=== PATIENT | female | born 1960 | race African-American/Black ===

== ENCOUNTER → 2016-08-02 | Outpatient (CLI) | payer OTHER | LOC: OD 09:23 | DX: G50.1 Atypical facial pain (principal); Z91.81 History of falling | CPT/HCPCS: 70150 ==

== ENCOUNTER 2016-08-06 12:25 | Observation (INO) | payer MEDICAID, OTHER ==
[2016-08-06] MEDS ORDERED: FAMOTIDINE 20 MG TABLET PO ONE (12:39)
[2016-08-06] MEDS ORDERED: DIPHENHYDRAMINE HCL 50 MG CAPSULE PO ONE (12:39)
[2016-08-06] MEDS ORDERED: METHYLPREDNISOLONE INJ 125 MG/2 ML SDV IV ONE ×2 (12:39→12:43)
[2016-08-06] MEDS ORDERED: PREDNISONE 20 MG TABLET PO ONE (12:40)
--- NOTE | 2016-08-06 12:42 | ER Document Report ---
ED Medical Screen (RME) - General Stated Complaint: TONGUE SWELLING Time seen by provider: 12:37 Mode of Arrival: Ambulatory Information source: Patient Notes: 55-year-old female that takes lisinopril has angioedema of the tongue since she woke up this morning at 6:00 and it is getting larger.. Pulses 115 pulse ox is 96% and the posterior pharynx has no visible edema. TRAVEL OUTSIDE OF THE [place] IN LAST 30 DAYS: No - Related Data Allergies/Adverse Reactions: No Known Allergies Allergy (Unverified 11/26/15 11:10) Past Medical History - Past Medical History Cardiac Medical History: Reports: Hx Hypertension Physical Exam - Vital signs Vitals: Temp Pulse Resp BP Pulse Ox 98.4 F 115 H 20 119/71 96 08/06/16 12:32 08/06/16 12:32 08/06/16 12:32 08/06/16 12:32 08/06/16 12:32 Course - Vital Signs Vital signs: Temp Pulse Resp BP Pulse Ox 98.4 F 115 H 20 119/71 96 08/06/16 12:32 08/06/16 12:32 08/06/16 12:32 08/06/16 12:32 08/06/16 12:32
[2016-08-06] MEDS ORDERED: FAMOTIDINE INJ/PF 20 MG/2 ML SDV IV ONE (12:44)
[2016-08-06] MEDS ORDERED: DIPHENHYDRAMINE HCL 50 MG/ML VIAL IV ONE (12:44)
--- NOTE | 2016-08-06 13:38 | ER Document Report ---
ED Allergic Reaction - General Chief Complaint: Swelling of Tongue Stated Complaint: TONGUE SWELLING Mode of Arrival: Ambulatory Notes: patient is a 55 year old female presents with tongue swelling that started 6am this morning with lip swelling. She states she has been able to breath normally but has muffled speech, denies SOB, cough, wheezing. Patient is on lisinopril for 1 year for HTN. PMH: HTN PSH: none SH: current every day smoker, socail etoh, denies drugs [facility]CP; [facility] TRAVEL OUTSIDE OF THE [place] IN LAST 30 DAYS: No - Related Data Allergies/Adverse Reactions: No Known Allergies Allergy (Unverified 11/26/15 11:10) Home Medications: Current Home Medications Hydrochlorothiazide 50 mg PO DAILY 08/06/16 [History] Lisinopril [Lisinopril] 20 mg PO DAILY 08/06/16 [History] Lisinopril [Prinivil] 20 mg PO DAILY 08/06/16 [History] Pravastatin Sodium 40 mg PO DAILY 08/06/16 [History] Past Medical History - General Information source: Patient - Social History Smoking Status: Current Every Day Smoker Chew tobacco use (# tins/day): No Frequency of alcohol use: Occasional Drug Abuse: None Family History: Reviewed & Not Pertinent Patient has suicidal ideation: No Patient has homicidal ideation: No - Past Medical History Cardiac Medical History: Reports: Hx Hypertension Renal/ Medical History: Denies: Hx Peritoneal Dialysis Review of Systems - Review of Systems Constitutional: No symptoms reported EENT: See HPI Cardiovascular: No symptoms reported Respiratory: No symptoms reported Gastrointestinal: No symptoms reported Genitourinary: No symptoms reported Female Genitourinary: No symptoms reported Musculoskeletal: No symptoms reported Skin: No symptoms reported Hematologic/Lymphatic: No symptoms reported Neurological/Psychological: No symptoms reported Physical Exam - Vital signs Vitals: Temp Pulse Resp BP Pulse Ox 98.4 F 115 H 20 119/71 96 08/06/16 12:32 08/06/16 12:32 08/06/16 12:32 08/06/16 12:32 08/06/16 12:32 - Notes Notes: PHYSICAL EXAM GENERAL: Alert, interacts well. Able to talk in full sentences but muffled speech HEAD: Normocephalic, atraumatic. EYES: Pupils equal, round, and reactive to light. Extraocular movements intact. ENT: Tongue swollen. lips normal. Oral mucosa moist, tongue midline. NECK: Full range of motion. Supple. Trachea midline. LUNGS: Clear to auscultation bilaterally, no wheezes, rales, or rhonchi. No respiratory distress. HEART: Regular rate and rhythm. No murmurs, gallops, or rubs. ABDOMEN: Soft, nondistended, nontender. No guarding, rebound, or rigidity.. Bowel sounds present in all 4 quadrants. EXTREMITIES: Moves all 4 extremities spontaneously. No edema, radial and dorsalis pedis pulses 2/4 bilaterally. No cyanosis. NEUROLOGICAL: Alert and oriented x3. Normal speech. PSYCH: Normal affect, normal mood. SKIN: Warm, dry, normal turgor. No rashes or lesions noted. Course - Re-evaluation Re-evalutation: 08/06/16 13:45 Patient is a 55-year-old who is hemodynamically stable, no acute distress evidence of angioedema, No respiratory distress and airway stable. At this time patient is responded positively to anti-inflammatory and steroid medication. Will admit to [facility] for observation under [facility] Francesca Barakat - Vital Signs Vital signs: Temp Pulse Resp BP Pulse Ox 98.4 F 115 H 16 111/79 98 08/06/16 12:32 08/06/16 12:32 08/06/16 15:01 08/06/16 15:00 08/06/16 15:14 Discharge - Discharge Clinical Impression: Angioedema Qualifiers: Encounter type: initial encounter Qualified Code(s): T78.3XXA - Angioneurotic edema, initial encounter Condition: Stable Disposition: ADMITTED OBSERVATION Admitting Provider: Hospitalist - [facility] Admitted: [facility]
[2016-08-06] MEDS ORDERED: ACETAMINOPHEN 325 MG TABLET PO PRN (14:31)
[2016-08-06] MEDS ORDERED: ZOLPIDEM TARTRATE 5 MG TABLET PO PRN (14:31)
[2016-08-06] MEDS ORDERED: DIPHENHYDRAMINE HCL 25 MG CAPSULE PO PRN (14:37)
--- NOTE | 2016-08-06 16:30 | PDOC H&P ---
History of Present Illness Admission Date/PCP: 08/06/16 14:31 Patient complains of: Tongue swelling History of Present Illness: AMADEO HUGHES is a 55 year old -Gu[place] female, who presents to [facility]'s emergency room with this morning, with complaints of sudden tongue swelling. Patient notes her tongue was thick when she got up to pressure teeth. It has worsened somewhat since then. She denies any significant difficulty swallowing or shortness of breath. She takes lisinopril and hydrochlorothiazide for hypertension. She reports no new medications or foods. She has no prior incidents is of this happening. Past Medical History Cardiac Medical History: Reports: Hyperlipidema, Hypertension Pulmonary Medical History: Reports: None EENT Medical History: Reports: None Neurological Medical History: Reports: None Endocrine Medical History: Reports: None Renal/ Medical History: Reports: None Malignancy Medical History: Reports: None GI Medical History: Reports: None Musculoskeltal Medical History: Reports: None Skin Medical History: Reports: None Psychiatric Medical History: Reports: Tobacco Dependency Traumatic Medical History: Reports: None Hematology: Reports: None Infectious Medical History: Reports: None Past Surgical History Past Surgical History: Reports: None Social History Information Source: Patient Lives with: Family Smoking Status: Current Every Day Smoker Cigarettes Packs Per Day: 1 Number of Years Smokin Hx Recreational Drug Use: No Hx Prescription Drug Abuse: No - Advance Directive Resuscitation Status: Full Code Family History Family History: Hypertension Parental Family History Reviewed: Yes Children Family History Reviewed: Yes Sibling(s) Family History Reviewed.: Yes Medication/Allergy Home Medications: Hydrochlorothiazide 50 mg PO DAILY 08/06/16 Lisinopril [Lisinopril] 20 mg PO DAILY 08/06/16 Lisinopril [Prinivil] 20 mg PO DAILY 08/06/16 Pravastatin Sodium 40 mg PO DAILY 08/06/16 Allergies/Adverse Reactions: No Known Allergies Allergy (Unverified 11/26/15 11:10) Review of Systems Constitutional: ABSENT: chills, fever(s), headache(s), weight gain, weight loss Eyes: ABSENT: visual disturbances Ears: ABSENT: hearing changes Nose, Mouth, and Throat: PRESENT: other - tongue swelling Cardiovascular: ABSENT: chest pain, dyspnea on exertion, edema, orthropnea, palpitations Respiratory: ABSENT: cough, hemoptysis Gastrointestinal: ABSENT: abdominal pain, constipation, diarrhea, hematemesis, hematochezia, nausea, vomiting Genitourinary: ABSENT: dysuria, hematuria Musculoskeletal: ABSENT: joint swelling Neurological: ABSENT: abnormal gait, abnormal speech, confusion, dizziness, focal weakness, syncope Psychiatric: ABSENT: anxiety, depression, homidical ideation, suicidal ideation Endocrine: ABSENT: cold intolerance, heat intolerance, polydipsia, polyuria Hematologic/Lymphatic: ABSENT: easy bleeding, easy bruising Physical Exam Vital Signs: Temp Pulse Resp BP Pulse Ox 98.4 F 115 H 16 111/79 98 08/06/16 12:32 08/06/16 12:32 08/06/16 15:01 08/06/16 15:00 08/06/16 15:14 General appearance: PRESENT: no acute distress, well-developed, well-nourished Head exam: PRESENT: atraumatic, normocephalic Eye exam: PRESENT: conjunctiva pink, EOMI, PERRLA. ABSENT: scleral icterus Ear exam: PRESENT: normal external ear exam Mouth exam: PRESENT: moist, neck supple, tongue midline, other - angioedema of tongue Neck exam: ABSENT: carotid bruit, JVD, lymphadenopathy, thyromegaly Respiratory exam: PRESENT: clear to auscultation adolfo. ABSENT: rales, rhonchi, wheezes Cardiovascular exam: PRESENT: RRR. ABSENT: diastolic murmur, rubs, systolic murmur Pulses: PRESENT: normal dorsalis pedis pul Vascular exam: PRESENT: normal capillary refill GI/Abdominal exam: PRESENT: normal bowel sounds, soft. ABSENT: distended, guarding, mass, organolmegaly, rebound, tenderness Rectal exam: PRESENT: deferred Extremities exam: PRESENT: full ROM. ABSENT: calf tenderness, clubbing, pedal edema Neurological exam: PRESENT: alert, awake, oriented to person, oriented to place , oriented to time, oriented to situation, CN II-XII grossly intact. ABSENT: motor sensory deficit Psychiatric exam: PRESENT: appropriate affect, normal mood. ABSENT: homicidal ideation, suicidal ideation Skin exam: PRESENT: dry, intact, warm. ABSENT: cyanosis, rash Assessment & Plan - Diagnosis (1) Angioedema Qualifiers: Encounter type: initial encounter Qualified Code(s): T78.3XXA - Angioneurotic edema, initial encounter Plan: Likely reaction to lisinopril. Will give IV methylprednisolone, Pepcid and Benadryl when necessary (2) Essential (primary) hypertension Is this a current diagnosis for this admission?: YesPlan: We will stop lisinopril and Norvasc continue hydrochlorothiazide. (3) Dyslipidemia Is this a current diagnosis for this admission?: YesPlan: Continue statin (4) Tobacco abuse Is this a current diagnosis for this admission?: YesPlan: Counseled. NicoDerm patch when necessary - Time Time Spent: 50 to 70 Minutes Critical Time spent with patient: 25-34 minutes Smoking Cessation Education: 3 to 10 minutes Medications reviewed and adjusted accordingly: Yes Anticipated discharge: Home Within: within 24 hours
[2016-08-06] MEDS ORDERED: NICOTINE 14 MG/24 HR PATCH.TD24 TD PRN (16:35)
[2016-08-06] MEDS ORDERED: DOCUSATE SODIUM 100 MG/10 ML UDC PO SCH (18:00)
[2016-08-06] MEDS ORDERED: INFLUENZA ADLT QUAD (36MOS+) 2016-17 VAC 0.5 ML SYR IM PRN (18:23)
[2016-08-06] MEDS: DOCUSATE SODIUM 100 MG CAPSULE PO SCH (18:50)
[2016-08-06] MEDS: FAMOTIDINE INJ/PF 20 MG/2 ML SDV IV SCH (21:32)
[2016-08-06] MEDS: METHYLPREDNISOLONE INJ 125 MG/2 ML SDV IV SCH (21:33)
[2016-08-06] MEDS ORDERED: SIMVASTATIN 10 MG TABLET PO SCH (22:00)
[2016-08-07] MEDS: METHYLPREDNISOLONE INJ 125 MG/2 ML SDV IV SCH (06:28)
[2016-08-07] MEDS ORDERED: HYDROCHLOROTHIAZIDE 50 MG TABLET PO SCH (10:00)
[2016-08-07] MEDS ORDERED: AMLODIPINE BESYLATE 5 MG TABLET PO SCH (10:00)
[2016-08-07] MEDS: FAMOTIDINE INJ/PF 20 MG/2 ML SDV IV SCH (10:23)
[2016-08-07] MEDS: DOCUSATE SODIUM 100 MG CAPSULE PO SCH (10:24)
[2016-08-07 12:12] VITALS: BP 115/72
--- NOTE | 2016-08-08 16:33 | PDOC DISCHARGE SUMMARY ---
General - Admit/Disc Date/PCP Admission Date/Primary Care Provider: 08/06/16 14:31 [facility] Discharge Date: 08/07/16 - Discharge Diagnosis (1) Angioedema Is this a current diagnosis for this admission?: Yes (2) Dyslipidemia Is this a current diagnosis for this admission?: Yes (3) Essential (primary) hypertension Is this a current diagnosis for this admission?: Yes (4) Tobacco abuse Is this a current diagnosis for this admission?: Yes - Additional Information Resuscitation Status: Full Code Discharge Diet: As Tolerated Discharge Activity: Activity As Tolerated Home Medications: Pravastatin Sodium 40 mg PO DAILY 08/06/16 Amlodipine Besylate [Norvasc 5 mg Tablet] 5 mg PO DAILY #30 tablet 08/07/16 Hydrochlorothiazide 50 mg PO DAILY #30 tablet 08/07/16 History of Present Illness Patient complains of: Mouth swelling History of Present Illness: AMADEO HUGHES is a 55 year old -[place]ian female, who presents to [facility]'s emergency room with this morning, with complaints of sudden tongue swelling. Patient notes her tongue was thick when she got up to pressure teeth. It has worsened somewhat since then. She denies any significant difficulty swallowing or shortness of breath. She takes lisinopril and hydrochlorothiazide for hypertension. She reports no new medications or foods. She has no prior incidents is of this happening. Hospital Course Hospital Course: The patient was admitted to continuous telemetry unit. The patient's CLYDE inhibitor was held. The patient received education regarding anaphylaxis reaction and CLYDE inhibitor as well as his allergy. I notified the patient's pharmacy of the patient's angioedema therefore would be listed. Patient had no respiratory symptoms including wheezing or stridor. Patient's edema completely resolved the patient was able to swallow without issue. Patient's blood pressures were well controlled with Norvasc and HCTZ which this will be continued. Patient to follow with primary care provider for further evaluation of hypertension. The patient was instructed to return to the emergency department if a biphasic response was to occur. Physical Exam Vital Signs: Temp Pulse Resp BP Pulse Ox 98 F 81 16 115/72 97 08/07/16 12:10 08/07/16 12:10 08/07/16 12:10 08/07/16 12:10 08/07/16 12:10 Intake & Output 03/10/1708/06/16 08/07/16 23:59 23:59 23:59 Intake Total 2009 Balance 2009 Weight 62.7 kg 64.2 kg General appearance: PRESENT: no acute distress, cooperative, well-developed, well-nourished Head exam: PRESENT: atraumatic, normocephalic Eye exam: PRESENT: conjunctiva pink, EOMI, PERRLA. ABSENT: scleral icterus Ear exam: PRESENT: normal external ear exam Mouth exam: PRESENT: moist, tongue midline Neck exam: ABSENT: carotid bruit, JVD, lymphadenopathy, thyromegaly Respiratory exam: PRESENT: clear to auscultation adolfo, symmetrical, unlabored. ABSENT: rales, rhonchi, tachypnea, wheezes Cardiovascular exam: PRESENT: RRR. ABSENT: diastolic murmur, rubs, systolic murmur Pulses: PRESENT: normal dorsalis pedis pul Vascular exam: PRESENT: normal capillary refill GI/Abdominal exam: PRESENT: normal bowel sounds, soft. ABSENT: distended, guarding, mass, organolmegaly, rebound, tenderness Rectal exam: PRESENT: deferred Extremities exam: PRESENT: full ROM. ABSENT: calf tenderness, clubbing, pedal edema Neurological exam: PRESENT: alert, awake, oriented to person, oriented to place , oriented to time, oriented to situation, CN II-XII grossly intact. ABSENT: motor sensory deficit Psychiatric exam: PRESENT: appropriate affect, normal mood. ABSENT: homicidal ideation, suicidal ideation Skin exam: PRESENT: dry, intact, warm. ABSENT: cyanosis, rash Qualifiers PATEINT BEING DISCHARGED WITH ANY OF THE FOLLOWING DIAGNOSIS?: No Plan Discharge Plan: The patient is a follow-up primary care provider within one to 2 weeks for hospital follow-up for hypertension management. The patient was taught about CLYDE inhibitor allergy. Time Spent: Less than 30 Minutes
== END 2016-08-07 12:19 | disposition home or self-care (01) ==
LOC: ER 12:25 → INTOOBSV 14:24 → UNDOADMOB 14:24 → EH 14:24 → 3N 17:36
PROVIDERS: ADMIT Family Medicine; ATTEND Family Medicine
PROC: 3E0234Z Introduction of Serum, Toxoid and Vaccine into Muscle, Percutaneous Approach (ICD-10-PCS; principal; 2016-08-06)
PROC: 3E033GC Introduction of Other Therapeutic Substance into Peripheral Vein, Percutaneous Approach (ICD-10-PCS; 2016-08-06)
PROC: 3E033GC Introduction of Other Therapeutic Substance into Peripheral Vein, Percutaneous Approach (ICD-10-PCS; 2016-08-06)
DX: T78.3XXA Angioneurotic edema, initial encounter (principal); E78.5 Hyperlipidemia, unspecified; I10 Essential (primary) hypertension; F17.210 Nicotine dependence, cigarettes, uncomplicated; Z23 Encounter for immunization
CPT/HCPCS: 99285; 96374; 96375; 90686; 90471; G0378 ×3; J1200; J3490; J2930 ×2; S0028 ×2

== ENCOUNTER → 2016-08-14 | Outpatient (CLI) | payer OTHER ==
[2016-08-14 18:25] LABS: ABSOLUTE BASOPHILS # (AUTO) 0.1 10^3/uL (0.0-0.2); ABSOLUTE LYMPHOCYTES (AUTO) 2.8 10^3/uL (0.5-4.7); ABSOLUTE MONOCYTES (AUTO) 1.1 10^3/uL (0.1-1.4); ABSOLUTE NEUT (AUTO) 8.2 10^3/uL (1.7-8.2); BASOPHILS % (AUTO) 0.6 % (0-2); EOSINOPHILS % (AUTO) 0.2 % (0-6); HEMATOCRIT 27.4 % (36.0-47.0); HGB HCT DIFFERENCE -0.4; MEAN CORPUSCULAR HEMOGLOBIN 29.6 pg (27.0-33.4); MEAN CORPUSCULAR HGB CONC 32.7 g/dL (32.0-36.0); MEAN CORPUSCULAR VOLUME 90 fl (80-97); MONOCYTES % (AUTO) 8.9 % (3-13); RED BLOOD COUNT 3.03 10^6/uL (3.72-5.28); RED CELL DISTRIBUTION WIDTH 13.9 % (11.5-14.0); SEGMENTED NEUTROPHILS % (AUTO) 67.3 % (42-78); WHITE BLOOD COUNT 12.2 10^3/uL (4.0-10.5)
[2016-08-14 18:47] LABS: MAGNESIUM 1.8 mg/dL (1.6-2.3); PHOSPHORUS 4.3 mg/dL (2.5-4.5)
[2016-08-15 13:34] LABS: CALCIUM 9.5 mg/dL (8.4-10.2)
[2016-08-15 13:35] LABS: ANION GAP 18 (5-19); BLOOD UREA NITROGEN 16 mg/dL (7-20); CARBON DIOXIDE 33 mmol/L (22-30); CHLORIDE 73 mmol/L (98-107); CREATININE RESULT 0.57 mg/dL (0.52-1.25); POTASSIUM 3.6 mmol/L (3.6-5.0); SODIUM 124.2 mmol/L (137-145)
[2016-08-15 13:36] LABS: GLUCOSE 795 mg/dL (75-110)
== END ==
LOC: CCC 16:48
DX: R35.8 Other polyuria (principal); I10 Essential (primary) hypertension; R25.2 Cramp and spasm; R19.5 Other fecal abnormalities
CPT/HCPCS: 36415; 80048; 80053; 83036; 83735; 84100; 85025

== ENCOUNTER → 2016-10-11 | Outpatient (CLI) | payer OTHER ==
[2016-10-11 11:18] LABS: ALANINE AMINOTRANSFERASE 36 U/L (9-52); ALBUMIN 4.2 g/dL (3.5-5.0); ALKALINE PHOSPHATASE 92 U/L (38-126); ANION GAP 15 (5-19); ASPARTATE AMINO TRANSFERASE 42 U/L (14-36); BILIRUBIN,DIRECT 0.3 mg/dL (0.0-0.4); BILIRUBIN,TOTAL 0.3 mg/dL (0.2-1.3); BLOOD UREA NITROGEN 12 mg/dL (7-20); CALCIUM 9.7 mg/dL (8.4-10.2); CARBON DIOXIDE 31 mmol/L (22-30); CHLORIDE 94 mmol/L (98-107); CHOLESTEROL 159.49 mg/dL (0-200); CREATININE RESULT 0.53 mg/dL (0.52-1.25); Direct HDL 79 mg/dL (>40); GLUCOSE 122 mg/dL (75-110); SODIUM 140.4 mmol/L (137-145); TOTAL PROTEIN 7.3 g/dL (6.3-8.2); TRIGLYCERIDES 168 mg/dL (<150)
[2016-10-11 11:29] LABS: DIRECT LDL 60 mg/dL (<100)
[2016-10-11 11:33] LABS: VLDL CHOLESTEROL 33.6 mg/dL (10-31)
== END ==
LOC: CCC 09:59
DX: E11.9 Type 2 diabetes mellitus without complications (principal)
CPT/HCPCS: 36415; 80053; 80061; 83036

== ENCOUNTER → 2016-12-14 | Outpatient (CLI) | payer OTHER ==
[2016-12-14 12:07] LABS: ANION GAP 13 (5-19); BLOOD UREA NITROGEN 17 mg/dL (7-20); CALCIUM 8.7 mg/dL (8.4-10.2); CARBON DIOXIDE 29 mmol/L (22-30); CHLORIDE 97 mmol/L (98-107); CHOLESTEROL 176.73 mg/dL (0-200); CREATININE RESULT 0.65 mg/dL (0.52-1.25); Direct HDL 55 mg/dL (>40); GLUCOSE 166 mg/dL (75-110); POTASSIUM 3.8 mmol/L (3.6-5.0); SODIUM 138.8 mmol/L (137-145); TRIGLYCERIDES 420 mg/dL (<150)
[2016-12-14 12:17] LABS: DIRECT LDL 69 mg/dL (<100)
== END ==
LOC: CCC 11:05
DX: E11.9 Type 2 diabetes mellitus without complications (principal); E87.6 Hypokalemia
CPT/HCPCS: 36415; 80048; 80061; 83036

== ENCOUNTER → 2017-02-14 | Outpatient (CLI) | payer OTHER ==
--- NOTE | 2017-02-14 17:16 | WOMENS IMAGING REPORT ---
EXAM DESCRIPTION: BILAT SCREENING MAMMO W/CAD COMPLETED DATE/TIME: 02/14/2017 1:32 pm REASON FOR STUDY: SCREENING MAMMO Z12.31 ENCNTR SCREEN MAMMOGRAM FOR MALIGNANT NEOPLASM OF MOHSEN COMPARISON: None. TECHNIQUE: Standard craniocaudal and mediolateral oblique views of each breast recorded using digita l acquisition. LIMITATIONS: None. FINDINGS: No masses, calcifications or architectural distortion. No areas of suspicion. Read with the assistance of CAD. .[facility] - R2 Cenova Version 1.3 .[facility] - R2 Cenova Version 1.3 .[facility] - R2 Cenova Version 2.4 .[facility] [place]2 Cenova Version 2.4 .[facility] - R2 Lead Material Handler Version 9.2 IMPRESSION: NORMAL MAMMOGRAM. BIRADS 1. BREAST DENSITY: b. There are scattered areas of fibroglandular density. BIRAD: 1 NEGATIVE RECOMMENDATION: ROUTINE SCREENING COMMENT: The patient has been notified of the results by letter per SA requirements. Additional no tification policies are in place for contacting patient with suspicious or incomplete findings. Quality ID #[id number]: The [employer] recommends an annual screening mammogram for women aged 40 years or over. This facility utilizes a reminder system to ensure that all patients receive reminder letters, and/or direct phone calls for appointments. This includes reminders for routine scr eening mammograms, diagnostic mammograms, or other Breast Imaging Interventions when appropriate. Th is patient will be placed in the appropriate reminder system. The [employer] (ACR) has developed recommendations for screening MRI of the breast s in certain patient populations, to be used in conjunction with mammography. Breast MRI surveillanc e may be appropriate for women with more than 20% lifetime risk of developing breast cancer as deter mined by genetic testing, significant family history of the disease, or history of mantle radiation f or Hodgkins Disease. ACR Practice Guidelines 2008. TECHNICAL DOCUMENTATION: FINDING NUMBER: (1) ASSESSMENT: (1) JOB ID: [id number] [employer]- All Rights Reserved
== END ==
LOC: WI 13:12
DX: Z12.31 Encounter for screening mammogram for malignant neoplasm of breast (principal)
CPT/HCPCS: 77067; G0202

== ENCOUNTER → 2017-10-09 | Outpatient (CLI) | payer OTHER ==
[2017-10-09 08:53] LABS: ALANINE AMINOTRANSFERASE 32 U/L (9-52); ALBUMIN 4.4 g/dL (3.5-5.0); ALKALINE PHOSPHATASE 145 U/L (38-126); ANION GAP 14 (5-19); ASPARTATE AMINO TRANSFERASE 32 U/L (14-36); BILIRUBIN,DIRECT 0.3 mg/dL (0.0-0.4); BILIRUBIN,TOTAL 0.3 mg/dL (0.2-1.3); BLOOD UREA NITROGEN 14 mg/dL (7-20); CALCIUM 10.1 mg/dL (8.4-10.2); CARBON DIOXIDE 32 mmol/L (22-30); CHLORIDE 96 mmol/L (98-107); CHOLESTEROL 111.52 mg/dL (0-200); GLUCOSE 184 mg/dL (75-110); POTASSIUM 3.6 mmol/L (3.6-5.0); SODIUM 141.6 mmol/L (137-145); TOTAL PROTEIN 7.7 g/dL (6.3-8.2); TRIGLYCERIDES 104 mg/dL (<150)
[2017-10-09 09:04] LABS: DIRECT LDL 57 mg/dL (<100)
== END ==
LOC: CCC 07:44
DX: I10 Essential (primary) hypertension (principal); E11.8 Type 2 diabetes mellitus with unspecified complications; E78.5 Hyperlipidemia, unspecified
CPT/HCPCS: 36415; 80053; 80061

== ENCOUNTER → 2018-06-25 | Outpatient (CLI) | payer OTHER ==
[2018-06-25 10:53] LABS: ABSOLUTE EOSINOPHILS # (AUTO) 0.1 10^3/uL (0.0-0.6); ABSOLUTE LYMPHOCYTES (AUTO) 2.6 10^3/uL (0.5-4.7); ABSOLUTE MONOCYTES (AUTO) 0.5 10^3/uL (0.1-1.4); ABSOLUTE NEUT (AUTO) 4.4 10^3/uL (1.7-8.2); BASOPHILS % (AUTO) 0.6 % (0-2); EOSINOPHILS % (AUTO) 0.7 % (0-6); HEMATOCRIT 38.1 % (36.0-47.0); HEMOGLOBIN 13.4 g/dL (12.0-15.5); LYMPHOCYTES % (AUTO) 33.8 % (13-45); MEAN CORPUSCULAR HEMOGLOBIN 29.7 pg (27.0-33.4); MEAN CORPUSCULAR HGB CONC 35.2 g/dL (32.0-36.0); MEAN CORPUSCULAR VOLUME 85 fl (80-97); MONOCYTES % (AUTO) 6.8 % (3-13); PLATELET COUNT 179 10^3/uL (150-450); RED BLOOD COUNT 4.51 10^6/uL (3.72-5.28); RED CELL DISTRIBUTION WIDTH 14.4 % (11.5-14.0); SEGMENTED NEUTROPHILS % (AUTO) 58.1 % (42-78); TOTAL CELLS COUNTED % (AUTO) 100 %; WHITE BLOOD COUNT 7.6 10^3/uL (4.0-10.5)
[2018-06-25 11:24] LABS: ALANINE AMINOTRANSFERASE 69 U/L (9-52); ALKALINE PHOSPHATASE 137 U/L (38-126); ANION GAP 12 (5-19); ASPARTATE AMINO TRANSFERASE 61 U/L (14-36); BILIRUBIN,DIRECT 0.2 mg/dL (0.0-0.4); BILIRUBIN,TOTAL 0.6 mg/dL (0.2-1.3); BLOOD UREA NITROGEN 13 mg/dL (7-20); CALCIUM 9.8 mg/dL (8.4-10.2); CARBON DIOXIDE 30 mmol/L (22-30); CHLORIDE 94 mmol/L (98-107); GLUCOSE 196 mg/dL (75-110); POTASSIUM 3.4 mmol/L (3.6-5.0); SODIUM 135.8 mmol/L (137-145); TOTAL PROTEIN 7.9 g/dL (6.3-8.2)
== END ==
LOC: CCC 09:53
DX: E11.8 Type 2 diabetes mellitus with unspecified complications (principal); I10 Essential (primary) hypertension
CPT/HCPCS: 36415; 80053; 83036; 85025

== ENCOUNTER → 2018-07-24 | Outpatient (CLI) | payer OTHER ==
[2018-07-24 12:20] LABS: CHOLESTEROL 194.54 mg/dL (0-200); TRIGLYCERIDES 131 mg/dL (<150)
[2018-07-24 12:30] LABS: DIRECT LDL 145 mg/dL (<100)
== END ==
LOC: CCC 10:32
DX: E11.8 Type 2 diabetes mellitus with unspecified complications (principal); I10 Essential (primary) hypertension
CPT/HCPCS: 36415; 80061

== ENCOUNTER 2018-09-25 11:58 | Emergency (ER) | payer SELFPAY ==
--- NOTE | 2018-09-25 12:58 | ER Document Report ---
ED Medical Screen (RME) - General Chief Complaint: Abnormal Lab Results Stated Complaint: ABNORMAL LABS Time Seen by Provider: 09/25/18 12:47 Primary Care Provider: [facility] LUIS,CATHY [Primary Care Provider] - Follow up as needed Notes: Patient is a 57-year-old female presents to the emergency department for abnormal labs. Patient states her primary care provider is currently testing her for hepatitis. States the doctor told her she had "liver problems." States her doctor called her today and told her that her hemoglobin and hematocrit were low and she should present to the emergency room. Patient states she does typically get intermittent epistaxis states last when she had was about a week ago. She also notes that 2 weeks ago her stool was a dark black color. States she has had "normal" stools since then. Patient's denying any complaints at this time to include lightheadedness, dizziness, chest pain, shortness of breath. GENERAL: Alert, interacts well. No acute distress. EYES: Pupils equal, round, and reactive to light. Extraocular movements intact. Scleral icterus noted bilaterally. ABDOMEN: Soft, non-tender. Non-distended. Bowel sounds present in all 4 quadrants. I have greeted and performed a rapid initial assessment of this patient. A comprehensive ED assessment and evaluation of the patient, analysis of test results and completion of the medical decision making process will be conducted by additional ED providers. This medical record was dictated with voice recognizing software. There may be grammatical, syntax errors that are unintended. TRAVEL OUTSIDE OF THE [place] IN LAST 30 DAYS: No - Related Data Allergies/Adverse Reactions: CLYDE Inhibitors Allergy (Severe, Verified 09/25/18 12:11) Anaphylaxis Past Medical History - Social History Frequency of alcohol use: Occasional Drug Abuse: None - Past Medical History Cardiac Medical History: Reports: Hx Hypercholesterolemia, Hx Hypertension Renal/ Medical History: Denies: Hx Peritoneal Dialysis - Immunizations Hx Diphtheria, Pertussis, Tetanus Vaccination: Yes Physical Exam - Vital signs Vitals: Temp Pulse Resp BP Pulse Ox 98.7 F 102 H 16 150/71 H 98 09/25/18 12:13 09/25/18 12:13 09/25/18 12:13 09/25/18 12:13 09/25/18 12:13 Course - Vital Signs Vital signs: Temp Pulse Resp BP Pulse Ox 98.7 F 102 H 16 150/71 H 98 09/25/18 12:13 09/25/18 12:13 09/25/18 12:13 09/25/18 12:13 09/25/18 12:13 Doctor's Discharge - Discharge [facility]errals: [facility] - Follow up as needed
[2018-09-25 13:51] LABS: ABSOLUTE LYMPHOCYTES (AUTO) 2.1 10^3/uL (0.5-4.7); ABSOLUTE MONOCYTES (AUTO) 0.6 10^3/uL (0.1-1.4); ABSOLUTE NEUT (AUTO) 4.5 10^3/uL (1.7-8.2); BASOPHILS % (AUTO) 0.5 % (0-2); EOSINOPHILS % (AUTO) 0.6 % (0-6); HEMATOCRIT 23.6 % (36.0-47.0); LYMPHOCYTES % (AUTO) 29.2 % (13-45); MEAN CORPUSCULAR HGB CONC 32.2 g/dL (32.0-36.0); MEAN CORPUSCULAR VOLUME 75 fl (80-97); MONOCYTES % (AUTO) 7.9 % (3-13); PLATELET COUNT 258 10^3/uL (150-450); RED BLOOD COUNT 3.17 10^6/uL (3.72-5.28); RED CELL DISTRIBUTION WIDTH 18.7 % (11.5-14.0); SEGMENTED NEUTROPHILS % (AUTO) 61.8 % (42-78); TOTAL CELLS COUNTED % (AUTO) 100 %; WHITE BLOOD COUNT 7.2 10^3/uL (4.0-10.5)
[2018-09-25 13:53] LABS: HEMOGLOBIN 7.6 g/dL (12.0-15.5)
[2018-09-25 13:58] LABS: INTERNATIONAL RATION (INR) 1.11; PROTHROMBIN TIME 14.9 SEC (11.4-15.4)
[2018-09-25 13:59] LABS: PARTIAL THROMBOPLASTIN TIME 25.8 SEC (23.5-35.8)
[2018-09-25 14:22] LABS: ALANINE AMINOTRANSFERASE 74 U/L (9-52); ALBUMIN 4.8 g/dL (3.5-5.0); ALKALINE PHOSPHATASE 104 U/L (38-126); ANION GAP 18 (5-19); ASPARTATE AMINO TRANSFERASE 95 U/L (14-36); BILIRUBIN,DIRECT 0.3 mg/dL (0.0-0.4); BILIRUBIN,TOTAL 0.5 mg/dL (0.2-1.3); BLOOD UREA NITROGEN 11 mg/dL (7-20); CALCIUM 9.8 mg/dL (8.4-10.2); CARBON DIOXIDE 25 mmol/L (22-30); CHLORIDE 91 mmol/L (98-107); GLUCOSE 271 mg/dL (75-110); SODIUM 134.4 mmol/L (137-145); TOTAL PROTEIN 8.4 g/dL (6.3-8.2)
[2018-09-25] MEDS ORDERED: POTASSIUM CHLORIDE 20 MEQ PACKET PO ONE ×2 (16:52→17:45)
--- NOTE | 2018-09-25 17:33 | ER Document Report ---
ED General - General Chief Complaint: Abnormal Lab Results Stated Complaint: ABNORMAL LABS Time Seen by Provider: 09/25/18 12:47 Primary Care Provider: [facility] [Provider Group] - Follow up tomorrow [facility] [Primary Care Provider] - Follow up as needed Notes: 57-year-old female with hypertension diabetes presents to the emergency department for abnormal labs. Patient states her primary care provider is currently testing her for hepatitis. States the doctor told her she had "liver problems." States her doctor called her today and told her that her hemoglobin and hematocrit were low and she should present to the emergency room. Patient states she does typically get intermittent epistaxis states last when she had was about a week ago. She also notes that 2 weeks ago her stool was a dark black color. States she has had "normal" stools since then. Patient's denying any complaints at this time to include lightheadedness, dizziness, chest pain, shortness of breath. Denies nausea or vomiting, denies diarrhea or constipation, no other complaints. TRAVEL OUTSIDE OF THE [place] IN LAST 30 DAYS: No - Related Data Allergies/Adverse Reactions: CLYDE Inhibitors Allergy (Severe, Verified 09/25/18 12:11) Anaphylaxis Past Medical History - Social History Smoking Status: Current Every Day Smoker Frequency of alcohol use: Occasional Drug Abuse: None Family History: Hypertension Patient has suicidal ideation: No Patient has homicidal ideation: No - Past Medical History Cardiac Medical History: Reports: Hx Hypercholesterolemia, Hx Hypertension Renal/ Medical History: Denies: Hx Peritoneal Dialysis - Immunizations Hx Diphtheria, Pertussis, Tetanus Vaccination: Yes Review of Systems - Review of Systems Constitutional: See HPI EENT: No symptoms reported Cardiovascular: See HPI Respiratory: See HPI Gastrointestinal: See HPI Genitourinary: No symptoms reported Female Genitourinary: No symptoms reported Musculoskeletal: No symptoms reported Skin: No symptoms reported Hematologic/Lymphatic: See HPI Neurological/Psychological: No symptoms reported Physical Exam - Vital signs Vitals: Temp Pulse Resp BP Pulse Ox 98.7 F 102 H 16 150/71 H 98 09/25/18 12:13 09/25/18 12:13 09/25/18 12:13 09/25/18 12:13 09/25/18 12:13 - Notes Notes: PHYSICAL EXAMINATION: Reviewed vital signs and charting by RN GENERAL: Alert, interacts well. No acute distress. HEAD: Normocephalic, atraumatic. EYES: Pupils equal and round. Extraocular movements intact. ENT: Oral mucosa moist, tongue midline. NECK: Full range of motion. Supple. Trachea midline. LUNGS: Clear to auscultation bilaterally, no wheezes, rales, or rhonchi. No respiratory distress. HEART: Regular rate and rhythm. No murmur ABDOMEN: soft, right and left upper quadrant tenderness to palpation. Non- distended. Bowel sounds present. no McBurney's point tenderness, no Peres sign. Occult blood stool testing performed and sent to lab, no overt blood seen in the rectum, no hemorrhoids seen EXTREMITIES: Moves all 4 extremities spontaneously. No edema, No cyanosis. Normal distal neurovascular exam BACK: No CVAT NEUROLOGIC: Oriented and appropriate. Normal speech. PSYCH: Normal affect, normal mood. SKIN: Warm, dry, normal turgor. No rashes or lesions noted. Course - Re-evaluation Re-evalutation: 09/25/18 17:12 Overall well-appearing. Grossly anemic compared to June 2018 when her hemoglobin was over 12. Today she presents at 7.5. Hemoccult sent to lab. 09/25/18 17:44 Hemoccult stool negative for blood. Above transfusion threshold. Liver b iochemical testing unremarkable. AST and ALT slightly elevated. PTT and PT/INR all within normal limits. At this time there is no emergent condition. And patient is not actively bleeding. Patient is not having any symptoms at all. I will give her urgent referral to gastroenterology. 09/25/18 17:50 09/25/18 18:26 - Vital Signs Vital signs: Temp Pulse Resp BP Pulse Ox 98.7 F 102 H 16 150/71 H 98 09/25/18 12:13 09/25/18 12:13 09/25/18 12:13 09/25/18 12:13 09/25/18 12:13 - Laboratory Result Diagrams: 09/25/18 13:31 09/25/18 13:31 Laboratory results interpreted by me: 09/25/18 09/25/18 13:31 13:31 RBC 3.17 L Hgb 7.6 L Hct 23.6 L MCV 75 L MCH 24.0 L RDW 18.7 H Sodium 134.4 L Potassium 3.0 L* Chloride 91 L Glucose 271 H AST 95 H ALT 74 H Total Protein 8.4 H Discharge - Discharge Clinical Impression: Anemia Qualifiers: Anemia type: unspecified type Qualified Code(s): D64.9 - Anemia, unspecified Condition: Good Disposition: HOME, SELF-CARE Additional Instructions: You were seen in the emergency department this afternoon for abnormal blood wor You have anemia. It is unclear why this is the case but in June your hemoglobin was 13 and today it was 7.5. In 2016 it was as low as 9 so it is unclear why you are so labile. You are not actively bleeding that we can see if this is all very reassuring. I have given your referral to new accounts banking representative, Dr. Tatyana cook to follow-up with. You may need to do some iron studies and some follow-up on blood work. If it any time you have bleeding per your rectum, you vomit with blood, become severely dizzy or lightheaded, acutely weak, passout, or any other concerning symptoms please immediately return to the emergency department. Referrals: [facility] [Primary Care Provider] - Follow up as needed CHIDI KELLY MD [ACTIVE STAFF] - Follow up in 3-5 days
[2018-09-25 19:02] VITALS: BP 138/81
== END 2018-09-25 19:01 | disposition home or self-care (01) ==
LOC: ER 11:58
DX: D64.9 Anemia, unspecified (principal); R74.0 Nonspecific elevation of levels of transaminase and lactic acid dehydrogenase [LDH]; R10.811 Right upper quadrant abdominal tenderness; R10.812 Left upper quadrant abdominal tenderness; I10 Essential (primary) hypertension; E11.9 Type 2 diabetes mellitus without complications; F17.200 Nicotine dependence, unspecified, uncomplicated; Z87.892 Personal history of anaphylaxis; Z88.8 Allergy status to other drugs, medicaments and biological substances
CPT/HCPCS: 99283; 86900; 86901; 36415; 86850; 85025; 85610; 85730; 82272; 80053; J3490

== ENCOUNTER → 2018-09-25 | Outpatient (CLI) | payer OTHER ==
[2018-09-25 10:12] LABS: ABSOLUTE LYMPHOCYTES (AUTO) 2.2 10^3/uL (0.5-4.7); ABSOLUTE MONOCYTES (AUTO) 0.5 10^3/uL (0.1-1.4); ABSOLUTE NEUT (AUTO) 4.7 10^3/uL (1.7-8.2); BASOPHILS % (AUTO) 0.6 % (0-2); EOSINOPHILS % (AUTO) 0.5 % (0-6); HEMATOCRIT 23.1 % (36.0-47.0); LYMPHOCYTES % (AUTO) 29.5 % (13-45); MEAN CORPUSCULAR HEMOGLOBIN 24.1 pg (27.0-33.4); MEAN CORPUSCULAR HGB CONC 32.5 g/dL (32.0-36.0); MEAN CORPUSCULAR VOLUME 74 fl (80-97); MONOCYTES % (AUTO) 7.2 % (3-13); PLATELET COUNT 257 10^3/uL (150-450); RED BLOOD COUNT 3.12 10^6/uL (3.72-5.28); SEGMENTED NEUTROPHILS % (AUTO) 62.2 % (42-78); TOTAL CELLS COUNTED % (AUTO) 100 %; WHITE BLOOD COUNT 7.6 10^3/uL (4.0-10.5)
[2018-09-25 10:15] LABS: INTERNATIONAL RATION (INR) 1.01; PROTHROMBIN TIME 13.8 SEC (11.4-15.4)
[2018-09-25 10:16] LABS: PARTIAL THROMBOPLASTIN TIME 25.9 SEC (23.5-35.8)
[2018-09-25 10:31] LABS: ALANINE AMINOTRANSFERASE 69 U/L (9-52); ALBUMIN 4.7 g/dL (3.5-5.0); ALKALINE PHOSPHATASE 113 U/L (38-126); ASPARTATE AMINO TRANSFERASE 95 U/L (14-36); BILIRUBIN,DIRECT 0.3 mg/dL (0.0-0.4); BILIRUBIN,TOTAL 0.5 mg/dL (0.2-1.3); TOTAL PROTEIN 8.3 g/dL (6.3-8.2)
[2018-09-25 10:54] LABS: HEMOGLOBIN 7.5 g/dL (12.0-15.5)
[2018-09-26 08:39] LABS: HEPATITIS C VIRUS AB <0.1 s/co ratio (0.0-0.9)
== END ==
LOC: CCC 09:33
DX: R94.5 Abnormal results of liver function studies (principal); R04.0 Epistaxis
CPT/HCPCS: 36415; 80076; 82565; 84443; 85025; 85610; 85730; 86803; 86804

== ENCOUNTER 2018-10-03 09:08 | Outpatient (CLI) | payer SELFPAY ==
[2018-10-03] MEDS ORDERED: FERRIC CARBOXYMALTOSE 750 MG in NORMAL SALINE 250 ML IV PRN (09:45)
[2018-10-03] MEDS ORDERED: NORMAL SALINE 250 ML IV PRN (10:00)
[2018-10-03 13:27] VITALS: BP 151/74
== END 2018-10-03 14:17 | disposition home or self-care (01) ==
LOC: II 09:08 → 5TH 12:55 → II 14:17
PROVIDERS: ATTEND Internal Medicine
DX: D50.8 Other iron deficiency anemias (principal); K90.9 Intestinal malabsorption, unspecified
CPT/HCPCS: 96365; J7050; J1439

== ENCOUNTER 2018-10-10 13:03 | Outpatient (CLI) | payer SELFPAY ==
[~2018-10-10 13:03] MED LIST: FERRIC CARBOXYMALTOSE 750 MG in NORMAL SALINE 250 ML IV PRN; NORMAL SALINE 250 ML IV PRN
[2018-10-10 13:58] VITALS: BP 140/91
== END 2018-10-10 14:36 | disposition home or self-care (01) ==
LOC: II 13:03 → 5TH 13:08 → II 14:36
PROVIDERS: ATTEND Internal Medicine
DX: D50.8 Other iron deficiency anemias (principal); K90.9 Intestinal malabsorption, unspecified
CPT/HCPCS: 96367; J7050; J1439